=== PATIENT | male | born 1955 | race Two or more races ===

== ENCOUNTER 2017-01-03 11:51 | Inpatient (IN) | payer OTHER ==
--- NOTE | 2017-01-03 12:22 | PDOC ---
History of Present Illness - General Chief Complaint: Pain Stated Complaint: RT ARM NUMBNESS Time Seen by Provider: 01/03/17 12:04 History Source: Patient - History of Present Illness Timing/Duration: other Associated Symptoms: denies: chest pain, headaches, nausea/vomiting, shortness of breath, weakness Past History - Past Medical History Allergies/Adverse Reactions: Allergies Allergy/AdvReac Type Severity Reaction Status Date / Time No Known Allergies Allergy Verified 01/03/17 11:57 Diabetes: Yes - Psycho/Social/Smoking Cessation Hx Anxiety: No Suicidal Ideation: No Smoking History: Never smoked Hx Alcohol Use: Yes (SOCIAL) Drug/Substance Use Hx: No Substance Use Type: None Review of Systems - Review of Systems Constitutional: No: Chills, Fever HEENTM: No: Blurred Vision Respiratory: No: Shortness of Breath Cardiac (ROS): No: Chest Pain, Lightheadedness, Palpitations, Syncope ABD/GI: No: Nausea, Vomiting Musculoskeletal: Yes: Back Pain. No: Neck Pain Neurological: Yes: Numbness. No: Headache, Tingling, Dizziness *Physical Exam - Vital Signs Last Vital Signs Temp Pulse Resp BP Pulse Ox 97.6 F 67 20 138/63 99 01/03/17 11:52 01/03/17 11:52 01/03/17 11:52 01/03/17 11:52 01/03/17 11:52 - Physical Exam General Appearance: Yes: Appropriately Dressed. No: Apparent Distress HEENT: positive: Normal Voice Neck: positive: Supple Respiratory/Chest: positive: Lungs Clear, Normal Breath Sounds. negative: Respiratory Distress Cardiovascular: positive: Regular Rate, S1, S2 Gastrointestinal/Abdominal: positive: Soft. negative: Tender Extremity: positive: Normal Inspection Integumentary: positive: Dry, Warm Neurologic: positive: Fully Oriented, Alert, Normal Mood/Affect, Motor Strength 5/5, Sensory Deficit (to RUE compared to L), no nystagmus, nl finger to nose, Jania intact, no drift, no ataxia) ED Treatment Course - LABORATORY CBC & Chemistry Diagram: 01/03/17 12:30 01/03/17 12:30 - RADIOLOGY Radiology Studies Ordered: Category Date Time Status HEAD CT WITHOUT CONTRAST [CT] Stat CT Scan 01/03/17 12:16 Ordered Medical Decision Making - Medical Decision Making 01/03/17 12:17 61-year-old male history of hypertension, on baby aspirin, hyperlipidemia, insulin-dependent diabetic, here with right upper extremity numbness. Patient states his right upper extremity "feels " and has noticed that since symptoms started, he drops things easily from right hand. Denies headache, dizziness, visual changes, focal weakness, chest pain or shortness of breath. No history of known CAD and no history of stroke. Also c/o lower back pain x 1 week, worse w/ movement. No trauma. No LE weakness, saddle anesthesia or B/B incontinence. Denies neck pain See exam RUE numbness/weakness x 3 days R/o CVA vs radiculopathy vs neuropathy Decreased sensation to RUE compared to L, non-focal otherwise No neck pain -CT -labs -dispo pending 01/03/17 12:21 01/03/17 12:24 01/03/17 13:43 CT read as multiple acute/subacute L frontoparietal subcortical infarcts -serial neuro exams -neuro c/s -admit 01/03/17 13:58 01/03/17 14:[address] Le of neurology who recommends bilateral carotid dopplers and cardiac consult. Will continue to follow patient 01/03/17 14:42 *DC/Admit/Observation/Transfer Diagnosis at time of Disposition: CVA (cerebral vascular accident) Qualifiers: CVA mechanism: unspecified Qualified Code(s): I63.9 - Cerebral infarction, unspecified - Discharge Dispostion Condition at time of disposition: Fair Admit: Yes
[2017-01-03 12:36] LABS: BASOPHIL 0.6 % (0-2.0); EOSINOPHIL 1.3 % (0-4.5); MCH 31.7 pg (25.7-33.7); MCHC 33.7 g/dl (32.0-35.9); MEAN CELL VOLUME 94.2 fl (80-96); PLATELET COUNT 113 K/MM3 (134-434); RDW 13.8 % (11.9-15.9); WHITE BLOOD COUNT 7.3 K/mm3 (4.0-10.0)
[2017-01-03 13:00] LABS: ALBUMIN 3.7 g/dl (3.4-5.0); ALK PHOS 95 U/L (45-117); ANION GAP 4 (8-16); BILIRUBIN,TOTAL 0.5 mg/dL (0.2-1.0); CALCIUM 9.3 mg/dL (8.5-10.1); CO2 31 mmol/L (21-32); CREATININE 0.7 mg/dL (0.7-1.3); GLUCOSE,RANDOM 151 mg/dL (74-106); SGOT/AST 14 U/L (15-37); SGPT/ALT 23 U/L (12-78)
--- NOTE | 2017-01-03 15:31 | HP ---
CHIEF COMPLAINT: R upper extremity weakness x 3 days PCP: [facility] HISTORY OF PRESENT ILLNESS: 61 y/o M with PMH HTN, HLD, IDDM rut who presents to ED with R upper extremity weakness over the past 3 days. As per patient, one week ago, he had sudden sub-sternal chest pressure that was constant. Pt went to his PCP and had an EKG performed, which was normal. Four days later, pt suddenly experienced R lower extremity weakness, followed by R arm weakness and tingling, which is constant. This has been going on for the past 3 days, and it is not related to any injury or fall. During this time, pt has also had blurry vision which is more pronounced in his L eye. Over the past week, he has also had constant, 6/10 back pain that is relieved by leaning forward. He has also lost 25 pounds over the last 3 months and has decreased appetite. Denies fevers, night sweats, N/V/D, bladder or bowel incontinence, recent falls , injuries. ER course was notable for: (1) CT w/o contrast: acute/subacute L frontoparietal subcortical infarcts (2) CT cervical spine: C6-C7 central canal stenosis, R C6-C7 foraminal stenosis (3) Recent Travel: no PAST MEDICAL HISTORY: HTN, HLD, IDDM (glucose measurements at home range up to 220) PAST SURGICAL HISTORY: none Social History: Smokin pack per day for 50 years Alcohol: 6 beers/ week on the weekend Drugs: denies Family History: diabetes- sister Allergies No Known Allergies Allergy (Verified 01/03/17 11:57) HOME MEDICATIONS: -Lisinopril 2.5 mg PO daily -Simvastatin 5mg PO daily -Aspirin 81 mg PO daily -Novolog - takes 15 units in AM Pt pharmacy: [facility] on [address], [place] REVIEW OF SYSTEMS CONSTITUTIONAL: +loss of appetite, +weight loss 25 pounds 3 months Absent: fever, chills, diaphoresis, generalized weakness, malaise, loss of appetite, weight change HEENT: Absent: rhinorrhea, nasal congestion, throat pain, throat swelling, difficulty swallowing, mouth swelling, ear pain, eye pain, visual changes CARDIOVASCULAR: Absent: chest pain, syncope, palpitations, irregular heart rate, lightheadedness , peripheral edema RESPIRATORY: Absent: cough, shortness of breath, dyspnea with exertion, orthopnea, wheezing, stridor, hemoptysis GASTROINTESTINAL: Absent: abdominal pain, abdominal distension, nausea, vomiting, diarrhea, constipation, melena, hematochezia GENITOURINARY: Absent: dysuria, frequency, urgency, hesitancy, hematuria, flank pain, genital pain MUSCULOSKELETAL: +lower back pain Absent: myalgia, arthralgia, joint swelling, back pain, neck pain SKIN: Absent: rash, itching, pallor HEMATOLOGIC/IMMUNOLOGIC: Absent: easy bleeding, easy bruising, lymphadenopathy, frequent infections ENDOCRINE: +weight loss Absent: unexplained weight gain, unexplained weight loss, heat intolerance, cold intolerance NEUROLOGIC: +weakness RUE, RLE Absent: headache, focal weakness or paresthesias, dizziness, unsteady gait, seizure, mental status changes, bladder or bowel incontinence PSYCHIATRIC: Absent: anxiety, depression, suicidal or homicidal ideation, hallucinations. PHYSICAL EXAMINATION Vital Signs - 24 hr 01/03/17 11:52 Temperature 97.6 F Pulse Rate 67 Respiratory 20 Rate Blood Pressure 138/63 O2 Sat by Pulse 99 Oximetry (%) GENERAL: Awake, alert, and fully oriented, in no acute distress. HEAD: Normal with no signs of trauma. EYES: Pupils equal, round and reactive to light, extraocular movements intact, sclera anicteric, conjunctiva clear. EARS, NOSE, THROAT: Ears normal, nares patent, oropharynx clear without exudates. Moist mucous membranes. NECK: Normal range of motion, supple without lymphadenopathy, JVD, or masses. LUNGS: Breath sounds equal, clear to auscultation bilaterally. No wheezes, and no crackles. No accessory muscle use. HEART: Regular rate and rhythm, normal S1 and S2 without murmur, rub or gallop. ABDOMEN: Soft, nontender, not distended, normoactive bowel sounds, no guarding, no rebound, no masses. MUSCULOSKELETAL: Strength 2/5 in RLE, RUE, 5/5 in LLE, LUE UPPER EXTREMITIES: 2+ radial pulses, warm, well-perfused. No cyanosis. No peripheral edema. LOWER EXTREMITIES: 2+ posterior tibial pulses, warm, well-perfused. No calf tenderness. No peripheral edema. NEUROLOGICAL: Cranial nerves II-XII intact. Decreased sensation RUE, RLE, intact sensation LLE, LUE, dysmetria present (pt could not do finger to nose test ), heel to conde test- WNL PSYCHIATRIC: Cooperative. Emotional, worried about his condition Laboratory Results - last 24 hr 01/03/17 01/03/17 12:30 12:30 WBC 7.3 RBC 4.94 Hgb 15.7 Hct 46.5 MCV 94.2 MCH 31.7 MCHC 33.7 RDW 13.8 Plt Count 113 L MPV 9.0 Neutrophils % 55.0 Lymphocytes % 35.9 Monocytes % 7.2 Eosinophils % 1.3 Basophils % 0.6 Sodium 141 Potassium 4.4 Chloride 106 Carbon Dioxide 31 Anion Gap 4 L BUN 7 Creatinine 0.7 Creat Clearance w eGFR > 60 Random Glucose 151 H Calcium 9.3 Total Bilirubin 0.5 AST 14 L ALT 23 Alkaline Phosphatase 95 Total Protein 7.0 Albumin 3.7 ASSESSMENT/PLAN: 61 y/o M with PMH HTN, HLD, IDDM who presents to ED with R upper extremity weakness and tingling for 3 days. Patient admitted for CVA. # CVA -Sudden RUE, RLE weakness, constant, blurred vision -CT without contrast: acute/subacute L frontoparietal subcortical infarcts -R side Dysmetria on exam -Cardiac workup to see if any source embolus. EKG, Echo, Carotid doppler, speech and swallow, PT/INR, tele monitoring to check for any arrythmias, lipid panel -Continue aspirin 81mg PO, Plavix 75mg PO, Crestor 10 mg PO HS -Neuro consult- Dr. Le -Neuro checks #HTN-controlled -BP 138/63 -Continue Lisinopril 2.5mg PO daily, aspirin 81 mg PO daily -Monitor, if HTN becomes uncontrolled then can increase dose of Lisinopril if needed #HLD -F/u Lipid panel -Continue crestor 10 mg PO HS #DM- uncontrolled -Not well controlled, pt checks at home and glucose ranges up to 220 -Fingersticks -BGM ACHS -ISS -HbA1c # DVT prophylaxis -SCD's -Early ambulation F/E/N -IVF not needed at this time, pt can tolerate PO -monitor electrolytes -Regular diet Disposition Med-surg Visit type - Emergency Visit Emergency Visit: Yes ED Registration Date: 01/03/17 Care time: The patient presented to the Emergency Department on the above date and was hospitalized for further evaluation of their emergent condition. - New Patient This patient is new to me today: Yes Date on this admission: 01/03/17 - Critical Care Critical Care patient: No
--- NOTE | 2017-01-03 15:36 | HP ---
CHIEF COMPLAINT: right sided weakness PCP: Dr. Ana Laura Palomares, [facility] HISTORY OF PRESENT ILLNESS: 61 yr old man with HTN, DM presents with right sided weakness that started in his right leg and slowly progressed to his right arm. 4 days ago he had acute loss of vision in b/l eyes that lasted for 5 mins and he regained his full vision. He has been able to go to work but notes difficulty grasping with his right hand. He works as a [employer]. Last wednesday he had chest pain and was seen by his pcp, office ekg apparently had no acute changes. Pt denies difficulty eating, current vision changes, sob, chest pain, difficulty walking, trauma to his spine/head/chest/right arm. ER course was notable for: (1) head CT (2) Dr. Le consulted Recent Travel:none PAST MEDICAL HISTORY: HTN uncontrolled DM PHYSICAL EXAMINATION GENERAL: Awake, alert, and fully oriented, in no acute distress. HEAD: Normal with no signs of trauma. EYES: Pupils equal, round and reactive to light, extraocular movements intact, sclera anicteric, conjunctiva clear. EARS, NOSE, THROAT: oropharynx clear without exudates. Moist mucous membranes. NECK: Normal range of motion, supple without lymphadenopathy, JVD, or masses. LUNGS: Breath sounds equal, clear to auscultation bilaterally. No wheezes, and no crackles. No accessory muscle use. HEART: Regular rate and rhythm, normal S1 and S2 without murmur, rub or gallop. ABDOMEN: Soft, nontender, not distended, normoactive bowel sounds, no guarding, no rebound, no masses. MUSCULOSKELETAL: Normal range of motion at all joints. No bony deformities or tenderness. No CVA tenderness. UPPER EXTREMITIES: 2+ radial pulses, warm, well-perfused. No cyanosis. No clubbing. No peripheral edema. LOWER EXTREMITIES: 2+ DP pulses, warm, well-perfused. No calf tenderness. No peripheral edema. NEUROLOGICAL: Normal speech. facial symmetry. rapid tongue movements normal. no tremors. right motor strength: 3/5 on handgrip/biceps/triceps and 3/5 shoulder. 3/5 at hip/knee extension and flexion 3/5 in dorsi and plantar flexion. sensation diminished throughout arm compared to left arm. left motor strength: 5/5 on handgrip/biceps/triceps and shoulder. 5/5 at hip extension/flexion, knee extension and flexion, 5/5 dorsi and plantar flexion ASSESSMENT/PLAN: 61 yr old man with DM and HTN presents with right sided weakness found to have subacute infarcts and canal stenosis in c-spine on CT. - pt denies any pervious hx of colonoscopies. will try to contact his PCP to confirm cancer screenings as patient endorses a hx of unintentional weightloss, TSH in the am to r/o thyroid dysfunction #CVA - symptoms onset >3 days, no longer candidate for TPA - carotid dopplers, tele monitor, echo to r/o athrosclerosis/stenosis and arrhythmias - speech and swallow eval, bedside evaluation by me was normal swallowing without choking/difficulty/cough - PT evaluation - ASA 81mg + Plavix 75mg + crestor 10mg po daily - Neurology consult: Dr. Le - lipid panel, TSH, HBA1C - mario scale at discharge #DM NISS, BGM ACHS #HTN - continue home dose of 2.5mg lisinopril daily, but will likely need titration for target SBP <130 #smoking cessation - offer counseling on smoking cessation at discharge DVT SCD's Diet: npo until nursing performs bedside eval as per protocol Visit type - Emergency Visit Emergency Visit: Yes ED Registration Date: 01/03/17 Care time: The patient presented to the Emergency Department on the above date and was hospitalized for further evaluation of their emergent condition. - New Patient This patient is new to me today: Yes Date on this admission: 01/03/17 - Critical Care Critical Care patient: No
[2017-01-03] MEDS ORDERED: PNEUMOC 13-VAL CONJ-DIP CRM/PF 0.5 ML DISP.SYRIN IM ONE (16:52)
[2017-01-03] MEDS ORDERED: CLOPIDOGREL BISULFATE 75 MG TABLET (FP) ONE (16:57)
[2017-01-03] MEDS: CLOPIDOGREL BISULFATE 75 MG TABLET (FP) PO SCH (17:00)
[2017-01-03] MEDS: INSULIN SLIDING SCALE (NOVOLOG) 1 VIAL SQ SCH ×2 (17:20→21:52)
--- NOTE | 2017-01-03 17:37 | PN ---
Teaching Attending Note Name of Resident: Corry Hicks ATTENDING PHYSICIAN STATEMENT I saw and evaluated the patient. I reviewed the resident's note and discussed the case with the resident. I agree with the resident's findings and plan as documented. SUBJECTIVE:61yo M c/o RUE/RLE weakness x4 days. states he had CP a week ago and saw his PMD in the office. an ekg was done and negative. he then developed RLE weakness 4 days ago and the following day with RUE weakness. assoc with blurred vision. no similar symptoms/episodes in the past. 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 (25lbs in 3 months) OBJECTIVE: Last Vital Signs Temp Pulse Resp BP Pulse Ox 97.6 F 62 18 130/71 99 01/03/17 11:52 01/03/17 15:00 01/03/17 15:00 01/03/17 15:00 01/03/17 15:00 General NAD CV S1 S2 RRR no murmur/rub/gallop Lungs CTA B/L no wheezing/rales/rhonchi Extremities no pedal edema Neuro CN II- XII grossly intact. RUE decreased sensation. no pronator drift but pt struggles to keep hands raised. 3/5 strength RUE/RLE 5/5 LUE/LLE gait testing deferred ASSESSMENT AND PLAN: 61yo M with PMH HTN, dyslipidemia and DM presented to the ER with RUE/RLE weakness and found to have subacute CVA 1. L subacute CVA- NIHSS 4. not a TPA candidate because outside the time frame. will place on cardiac monitoring to watch for arrythmia, carotid doppler, echo. check lipid panel. Neuro, speech and swallow pathologist, PT eval. will switch low intensity statin to crestor. start plavix. 2. C6-C7 canal stenosis- this can be related to decreased sensation and weakness of RUE. however would not explain RLE weakness. PT assessment 3. Significant weight loss- should have a malignancy workup done as outpatient. smoking history 4. HTN- controlled. hold oral agents. will re-start medications tomorrow to optimize BP <140/90 5. DM- uncontrolled. check a1c. iss, bgm, 6. DVT ppx- EAM
[2017-01-03 21:06] VITALS: BMI 21.3
[2017-01-03] MEDS: ROSUVASTATIN CA 10 MG TABLET (FP) PO SCH (21:53)
[2017-01-03 22:22] LABS: URINE APPEARANCE CLEAR; URINE BILIRUBIN NEGATIVE (NEGATIVE); URINE BLOOD NEGATIVE (NEGATIVE); URINE COLOR LTYELLOW; URINE GLUCOSE (UA) 1+ (NEGATIVE); URINE KETONE NEGATIVE (NEGATIVE); URINE LEUK ESTERASE NEGATIVE (NEGATIVE); URINE NITRITE NEGATIVE (NEGATIVE); URINE PROTEIN NEGATIVE (NEGATIVE); URINE UROBILINOGEN NEGATIVE mg/dL (0.2-1.0)
[2017-01-04] MEDS: INSULIN SLIDING SCALE (NOVOLOG) 1 VIAL SQ SCH ×4 (06:35→22:09)
[2017-01-04 07:32] LABS: BASOPHIL 0.4 % (0-2.0); EOSINOPHIL 1.3 % (0-4.5); MCH 31.7 pg (25.7-33.7); MCHC 33.5 g/dl (32.0-35.9); MEAN CELL VOLUME 94.5 fl (80-96); MEAN PLT VOLUME 10.3 fl (7.5-11.1); NEUTROPHILS 62.8 % (42.8-82.8); PLATELET COUNT 126 K/MM3 (134-434); RDW 13.8 % (11.9-15.9); WHITE BLOOD COUNT 11.4 K/mm3 (4.0-10.0)
[2017-01-04 07:45] LABS: INR 1.1 (0.82-1.09); PROTHROMBIN TIME (PATIENT) 12.1 SEC (9.98-11.88)
[2017-01-04 08:19] LABS: ANION GAP 7 (8-16); CALCIUM 8.4 mg/dL (8.5-10.1); CHOLESTEROL 176 mg/dL (50-200); CO2 25 mmol/L (21-32); CREATININE 0.6 mg/dL (0.7-1.3); GLUCOSE,RANDOM 166 mg/dL (74-106); LDL CHOLESTEROL (ONLY SJRH) 102 mg/dL (5-100); THYROID STIMULATING HORMONE 3.31 uIU/ml (0.358-3.74)
--- NOTE | 2017-01-04 08:40 | CON.CARD ---
Consult Consult Specialty:: cardio Referred by:: hospitalist Reason for Consultation:: cva, atyp cp - History of Present Illness Chief Complaint: blurred vision, arm pain History of Present Illness: 61 y/o M presented to ED with R upper and lower extremity weakness over the past 3 days. he also reported L > R eye vision changes for past few days. also reported episode of sudden sub-sternal chest pressure 1 week [employer]--this was constant, resolved on its own. saw his PCP at that time and reportedly EKG performed, which was normal. Over the past week, he has also had constant, 6/10 back pain that is relieved by leaning forward. He has also lost 25 pounds over the last 3 months and has decreased appetite. describes the cp as lasting for approx 30min, no radiation including to back ( and no assctd back pain) and no "tearing" sensation. +assctd sob then, no presyncope/diaph. took ASA and it eventually resolved. never happened before, no more episodes of the pain. denies acid/burning sensation with it PMH: HTN HPL DM ex cigs no FH of CAD/CT - Alcohol/Substance Use Hx Alcohol Use: Yes (SOCIAL) - Smoking History Smoking history: Never smoked Home Medications - Allergies Allergies/Adverse Reactions: Allergies Allergy/AdvReac Type Severity Reaction Status Date / Time No Known Allergies Allergy Verified 01/03/17 11:57 - Home Medications Home Medications: Ambulatory Orders Aspirin [ASA -] 81 mg PO DAILY 01/03/17 Insulin (Novolog 70/30) [Novolog Mix 70/30 Flexpen -] 15 units SQ DAILY Lisinopril [Zestril] 2.5 mg PO DAILY 01/03/17 Simvastatin 5 mg PO 1900 01/03/17 Review of Systems - Review of Systems Constitutional: denies: Chills, Fever Eyes: denies: Eye Pain HENT: denies: Nasal Congestion Neck: denies: Stiffness Cardiovascular: denies: Palpitations Respiratory: denies: Orthopnea, PND Gastrointestinal: denies: Diarrhea, Rectal Bleeding Genitourinary: denies: Burning, Hematuria Musculoskeletal: denies: Muscle Pain Integumentary: denies: Rash Neurological: denies: Numbness, Seizure, Syncope Endocrine: denies: Excessive Sweating Hematology/Lymphatic: denies: Excessive Bleeding Vital Signs: Vital Signs Temperature 98 F 01/04/17 05:36 Pulse Rate 63 01/04/17 05:36 Respiratory Rate 18 01/04/17 05:36 Blood Pressure 121/64 01/04/17 05:36 O2 Sat by Pulse Oximetry (%) 98 01/03/17 21:00 Constitutional: Yes: Well Nourished, No Distress Eyes: No: Sclera Icterus HENT: No: Nasal Congestion Neck: No: Decreased ROM Respiratory: Yes: CTA Bilaterally. No: Accessory Muscle Use, Rales, Wheezes Gastrointestinal: Yes: Normal Bowel Sounds (no bruits). No: Distention, Hepatomegaly, Palpable Mass, Tenderness Cardiovascular: Yes: Regular Rate and Rhythm JVD: No Carotid Bruit: No PMI: Non-Displaced Heart Sounds: Yes: S1, S2. No: Gallop Murmur: No: Systolic Murmur, Diastolic Murmur Musculoskeletal: Yes: Other (No kyphosis) Extremities: No: Cold Edema: No Peripheral Pulses: 2+ Left Carotid, 2+ Right Carotid, 2+ Left Doralis Pedis, 2+ Right Dorsalis Pedis Integumentary: No: Jaundice Neurological: Yes: Alert. No: Seizure Psychiatric: No: Agitated - Other Data Labs, Other Data: CBC, BMP 01/04/17 06:00 INR, PTT INR 1.10 (0.82-1.09) 01/04/17 06:00 Laboratory Tests 01/03/17 01/04/17 12:30 06:00 WBC 11.4 H D Hgb 15.3 Plt Count 126 L Sodium 141 Potassium 4.4 Carbon Dioxide 31 BUN 7 Creatinine 0.7 AST 14 L ALT 23 tele: NSR Assessment/Plan CT head w/o contrast: acute/subacute L frontoparietal subcortical infarcts CT cervical spine: C6-C7 central canal stenosis, R C6-C7 foraminal stenosis Carotid dopplers: no plaque, no stenosis ECG: NSR, normal axis/intervals; no path q's (v1-/v2 only); early repol normal variant pattern (no old) acute/subacute L frontoparietal infarcts: -tele to monitor for afib -carotids normal -check echo -was on ASA at home and had CVA despite this--cont same for now, defer anti-PLT choice to neuro -f/u neuro eval and recs atypical CP: -self-limited episode approx 1 week prior to admit, apparently normal ecg at PMD -ecg non-ischemic -troponin negative -f/u echo -sx's not suspicious for aortic dissection (i.e. with carotids involvement...and no suggestion of carotid dissection on dopplers). would not w/ u dissection further -rec he eventually have stress test to r/o atypical angina as etiology of his sx 's 1 week ago--will wait until he is further out from his acute CVA and demonstrates neurologic stability HTN: -well controlled -cont home lisinopril HPL: -TGs 400s, HDL 20s, LDL 100s -cont home simvastatin -would add TG lowering med to hopefully improve HDL and decr risk, in setting of CVA sec prevention--rec fenofibrate as more potent than omega 3 FAs. however prior h/o intolerances to this med is unknown, and not on it (suspect pmd would have tried fibrate in past)--defer to outpt f/u (will have him f/u with us as well as pmd) DM: -per hospitalist
--- NOTE | 2017-01-04 09:35 | CONSULT ---
Admitting History and Physical - Primary Care Physician PCP: Trini Owusu - Admission History of Present Illness: Per EMR: "61yo M c/o RUE/RLE weakness x4 days. states he had CP a week ago and saw his PMD in the office. an ekg was done and negative. he then developed RLE weakness 4 days ago and the following day with RUE weakness. assoc with blurred vision. no similar symptoms/episodes in the past. 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 (25lbs in 3 months)" History Source: Patient, Family Member, Medical Record Limitations to Obtaining History: No Limitations, Language Barrier - Smoking History Smoking history: Never smoked - Alcohol/Substance Use Hx Alcohol Use: Yes (SOCIAL) History - Admission Reason For Visit: CVA - Diagnostics X-ray: Report Reviewed CT Scan: Report Reviewed (CT head w/o contrast: acute/subacute L frontoparietal subcortical infarcts CT cervical spine: C6-C7 central canal stenosis, R C6-C7 foraminal stenosis) - General Mental Status: Alert and Oriented, Awake and Alert, Able to Follow Commands Attention: Intact Ability to Follow Directions: Excellent Head/Neck Control: WFL - Hearing Hearing: Normal Speech Evaluation - Communication Primary Language: YAKUT Communication: Yes: Within Normal Limits, Language Barrier (police matron used) Oral Expression Ability: Yes: No Impairment - Speech Production Apraxia: No Able to Make Needs Known: Yes: WNL Intelligibility: Yes: WNL - Speech Characteristics Voice Loudness: Normal Voice Pitch: Yes: Normal Voice Phonatory-based Quality: Yes: Normal Speech Pattern: Normal Speech Clarity: < 100% Nasal Resonance: Normal Articulation: Yes: Precise - Language/Auditory Comprehension Follows: Yes: Complex Commands Observation: Able to respond to yes/no queries: Yes, Yes/No Confusion: No, Comprehends Conversational Speech: Yes - Language/Verbal Expression Able to Respond to Simple Queries: Yes: WNL Able to Communicate Wants and Needs: Yes: WNL Functional Communication Status: Yes: WNL - Memory/Perception rodent exterminator Memory: Yes: WNL Short Term Memory: Yes: WNL - Swallow Evaluation/Bedside Assessment Current Nutritional Intake: Regular, Thin Liquids Oral Secretions: Yes: WFL Dentition: Yes: Adequate Facial Symmetry at Rest: Symmetrical Facial Symmetry on Retraction: Symmetrical Facial Movement: Controlled Sensation: Normal Against Resistance Opening: Normal Against Resistance Closing: Normal Pucker Lips: Normal Smile: Normal Lingual Movement: Normal, Symmetric Lingual Speed of Movement: Normal Lingual Movement Strgth Against Opposition: Normal Lingual Movement Characteristics: Normal Velopharyngeal Movement: Normal Laryngeal Elevation: WFL Laryngeal Movement: Able to Palpate Rate of Intake: WFL Bolus Size: WFL Labial Seal: WFL Chewing: WFL Oral Prep Time: WFL A-P Transit: WFL Pocketing: None Timing of Swallow: WFL Coughing/Throat Clear: No Change in Voice: No Recommendations - Speech Evaluation, Impression/Plan Impression: Speech production, Language, cognition, swallowing intact. - Dysphagia Impressions/Plan Swallowing Skills: [facility] Dysphagia Impressions: No Impairment *Silent aspiration: cannot be R/O at bedside - Recommendations Diet Consistency: Regular Medication Administration: Whole with water Liquids: Thin Liquids
--- NOTE | 2017-01-04 09:48 | EKG ---
Test Reason : Blood Pressure : / mmHG Vent. Rate : 064 BPM Atrial Rate : 064 BPM P-R Int : 150 ms QRS Dur : 072 ms QT Int : 366 ms P-R-T Axes : 047 014 032 degrees QTc Int : 377 ms NORMAL SINUS RHYTHM SEPTAL INFARCT (CITED ON OR BEFORE 03-JAN-2017) ABNORMAL ECG WHEN COMPARED WITH ECG OF 03-JAN-2017 12:25, NO SIGNIFICANT CHANGE WAS FOUND Confirmed by KAYLEIGH LOTT MD ([id number]) on 01/04/2017 9:48:23 AM Referred By: BRENDAN GREEN DR Confirmed By:KAYLEIGH LOTT MD
[2017-01-04] MEDS: LISINOPRIL 5 MG TABLET (FP) PO SCH (10:04)
[2017-01-04] MEDS: CLOPIDOGREL BISULFATE 75 MG TABLET (FP) PO SCH (10:05)
[2017-01-04] MEDS: ASPIRIN 81 MG CHEWABLE TABLETS PO SCH (10:05)
[2017-01-04 10:14] LABS: CPK 66 IU/L (39-308)
[2017-01-04 10:15] LABS: TROPONIN I < 0.02 ng/ml (0.00-0.05)
[2017-01-04 11:21] LABS: C-REACTIVE PROTEIN < 0.3 MG/DL (0.00-0.3)
--- NOTE | 2017-01-04 12:18 | CONSULT ---
Consult - text type - Consultation Consultation Note: NEUROLOGY CONSULTATION is greatly appreciated: Events and CT reviewed. Pt examined in the presence of his . 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 This 61 yo RH, man is a bettencourt with h/o HTN, DM, Chol and TG on lisinopril, crestor and insulin. Had w/u of chest pain in the last few weeks. Admitted yesterday after 3 days of numbness, tingling and weakness in the right arm with difficulty holding objects and difficulty walking. CT of Head (reviewed) shows scattered subcortical microvascular changes, more on the ledft side. Carotid duplex dopplers unremarkable for carotid stenosis. Glycosylated Hemoglobin A1-C=8.8 %. TG's > 400 mg% Dr. Tamayo's cardiology consultation read and appreciated. WINSOME: Well-built and nourished. No bruits., Cor reg. On Telemetry. NEURO: MS/speech: Normal CN's II-XII: normal. Full fioelds. No facial. Gag fine Motor: Mild upward drift on the Right. Slightly reduced LORETTA's R hand. Normal strength and reflexes. Toes downgoing Coord: No FTN dystaxia Sensory: Normal. Romberg Neg Gait: Mild R circumduction. IMP: Mild residual left cerebral dysfunction. Most suggestive off a microvascular event (suspect a lacunar infarct in the posterior limb of the left internal capsule. SUGGEST: Await MRI (C-) MR Angio of intracranial circulation (R/O right MCA trifurcation stenosis). Agree with Plavix (75 mg qd). Agree with addition of fenofibrate to crestor. Agree with Telemetry, stress test. Consider Echocardeiogram as well if Dr. Tamayo agrees. Thank you very much, Ramone Le MD
--- NOTE | 2017-01-04 12:34 | PN ---
Teaching Attending Note Name of Resident: Corry Hicks ATTENDING PHYSICIAN STATEMENT I saw and evaluated the patient. I reviewed the resident's note and discussed the case with the resident. I agree with the resident's findings and plan as documented. SUBJECTIVE:continues to have blurred vision. his strength in RUE/RLE improved. denies CP, SOB, fever, chills, N/V/C/D OBJECTIVE: Last Vital Signs Temp Pulse Resp BP Pulse Ox 98 F 64 14 112/64 96 01/04/17 08:10 01/04/17 08:10 01/04/17 08:10 01/04/17 08:10 01/04/17 09:00 General NAD CV S1 S2 RRR no murmur/rub/gallop Lungs CTA B/L no wheezing/rales/rhonchi Extremities no pedal edema Neuro CN II- XII grossly intact. RUE decreased sensation. no pronator drift but pt struggles to keep hands raised. strength equal in all extremities. negative Rhomberg sign. normal gait ASSESSMENT AND PLAN: 61yo M with PMH HTN, dyslipidemia and DM presented to the ER with RUE/RLE weakness and found to have subacute CVA 1. L subacute CVA- NIHSS 4. clinically improved. strength is now improved. carotid doppler negative for significant disease. cont further CVA workup. MRI/ MRI, echo. Neuro, speech and swallow pathologist, PT eval. on statin/plavix. 2. C6-C7 canal stenosis- strength now equal in all 4 extremities but continues to have numbness limited to entire RUE. concern may be related to this over CVA. would likely benefit from EMG to further evaluate. PT assessment 3. Significant weight loss- should have a malignancy workup done as outpatient. pt agreeable to workup as outpatient. expressed concerning for malignancy. pt is anxious to go home and does not want to delay discharge. + smoking history 4. hypertriglyceridemia- start fibrate 5. HTN- controlled. cont home medications. 6. DM- A1c 8.8. titrate to optimize control. on novolog 70/30 7. DVT ppx- EAM
[2017-01-04] MEDS: FENOFIBRIC ACID 45 MG CAP PO SCH (15:26)
--- NOTE | 2017-01-04 16:26 | PN ---
Physical Exam: SUBJECTIVE: Patient seen and examined in room. Pt's gait is improved, no dysarthria. R pronator drift present. Denies SOB, chest pain, or lower extremity pain. OBJECTIVE: Vital Signs Period Temp Pulse Resp BP Sys/Sanchez Pulse Ox Last 24 Hr 98 F-98.8 F 63-67 14-20 107-124/62-71 96-98 GENERAL: The patient is awake, alert, and fully oriented, in no acute distress. HEAD: Normal with no signs of trauma. EYES: PERRL, extraocular movements intact, sclera anicteric, conjunctiva clear. NECK: Trachea midline, supple. LUNGS: Breath sounds equal, clear to auscultation bilaterally, no wheezes, no crackles, no accessory muscle use. HEART: Regular rate and rhythm, S1, S2 without murmur, rub or gallop. ABDOMEN: Soft, nontender, nondistended, normoactive bowel sounds, no guarding, no rebound EXTREMITIES: motor strength 3/5 in RUE and RLE. 2+ posterior tibial pulses, warm , well-perfused, no edema. NEUROLOGICAL: Cranial nerves II through XII grossly intact. No dysarthria. R pronator drift present. Gait improved compared to yesterday. Laboratory Results - last 24 hr 01/03/17 01/03/17 01/03/17 17:25 21:50 22:04 WBC RBC Hgb Hct MCV MCH MCHC RDW Plt Count MPV Neutrophils % Lymphocytes % Monocytes % Eosinophils % Basophils % ESR INR PTT (Actin FS) Sodium Potassium Chloride Carbon Dioxide Anion Gap BUN Creatinine POC Glucometer [phone] Random Glucose Hemoglobin A1c % Calcium Creatine Kinase Troponin I C-Reactive Protein Triglycerides Cholesterol Total LDL Cholesterol HDL Cholesterol TSH Urine Color Ltyellow Urine Appearance Clear Urine pH 7.0 Ur Specific [place] 1.020 Urine Protein Negative Urine Glucose (UA) 1+ H Urine Ketones Negative Urine Blood Negative Urine Nitrite Negative Urine Bilirubin Negative Urine Urobilinogen Negative Ur Leukocyte Esterase Negative 01/04/17 01/04/17 01/04/17 05:33 05:35 06:00 WBC 11.4 H D RBC 4.82 Hgb 15.3 Hct 45.5 MCV 94.5 MCH 31.7 MCHC 33.5 RDW 13.8 Plt Count 126 L MPV 10.3 D Neutrophils % 62.8 Lymphocytes % 28.5 D Monocytes % 7.0 Eosinophils % 1.3 Basophils % 0.4 ESR INR PTT (Actin FS) Sodium Potassium Chloride Carbon Dioxide Anion Gap BUN Creatinine POC Glucometer 169 Random Glucose Hemoglobin A1c % Calcium Creatine Kinase Cancelled Troponin I Cancelled C-Reactive Protein Triglycerides Cholesterol Total LDL Cholesterol HDL Cholesterol TSH Urine Color Urine Appearance Urine pH Ur Specific [place] Urine Protein Urine Glucose (UA) Urine Ketones Urine Blood Urine Nitrite Urine Bilirubin Urine Urobilinogen Ur Leukocyte Esterase 01/04/17 01/04/17 01/04/17 06:00 06:00 06:00 WBC RBC Hgb Hct MCV MCH MCHC RDW Plt Count MPV Neutrophils % Lymphocytes % Monocytes % Eosinophils % Basophils % ESR INR 1.10 PTT (Actin FS) 32.0 Sodium 139 Potassium 4.1 Chloride 107 Carbon Dioxide 25 Anion Gap 7 L BUN 14 D Creatinine 0.6 L POC Glucometer Random Glucose 166 H Hemoglobin A1c % 8.8 H Calcium 8.4 L Creatine Kinase 66 Troponin I < 0.02 C-Reactive Protein < 0.3 Triglycerides 486 H Cholesterol 176 Total LDL Cholesterol 102 H HDL Cholesterol 23 L TSH 3.31 Urine Color Urine Appearance Urine pH Ur Specific [place] Urine Protein Urine Glucose (UA) Urine Ketones Urine Blood Urine Nitrite Urine Bilirubin Urine Urobilinogen Ur Leukocyte Esterase 01/04/17 01/04/17 01/04/17 10:45 10:45 12:32 WBC RBC Hgb Hct MCV MCH MCHC RDW Plt Count MPV Neutrophils % Lymphocytes % Monocytes % Eosinophils % Basophils % ESR 2 INR PTT (Actin FS) Sodium Potassium Chloride Carbon Dioxide Anion Gap BUN Creatinine POC Glucometer 207 Random Glucose Hemoglobin A1c % Calcium Creatine Kinase Troponin I C-Reactive Protein Cancelled Triglycerides Cholesterol Total LDL Cholesterol HDL Cholesterol TSH Urine Color Urine Appearance Urine pH Ur Specific [place] Urine Protein Urine Glucose (UA) Urine Ketones Urine Blood Urine Nitrite Urine Bilirubin Urine Urobilinogen Ur Leukocyte Esterase Active Medications Generic Name Dose Route Start Last Admin Trade Name Freq PRN Reason Stop Dose Admin Aspirin 81 mg 01/04/17 10:00 01/04/17 10:05 Asa - PO 81 mg DAILY JAMES Administration Clopidogrel Bisulfate 75 mg 01/03/17 16:15 01/04/17 10:05 Plavix - PO 75 mg DAILY JAMES Administration Fenofibric Acid 45 mg 01/04/17 13:00 01/04/17 15:26 Trilipix - PO 45 mg DAILY JAEMS Administration Insulin Aspart 1 vial 01/03/17 16:30 01/04/17 12:33 Novolog Vial Sliding Scale - SQ 4 units ACHS JAMES Administration Protocol Lisinopril 2.5 mg 01/04/17 10:00 01/04/17 10:04 Prinivil PO 2.5 mg DAILY JAMES Administration Rosuvastatin Calcium 10 mg 01/03/17 22:00 01/03/17 21:53 Crestor - PO 10 mg HS JAMES Administration ASSESSMENT/PLAN: 61 y/o M with PMH HTN, HLD, IDDM who presents to ED with R upper extremity weakness and tingling for 3 days. Patient admitted for CVA. # CVA -Carotid doppler- no stenosis -Lipid panel: 486 triglycerides -Speech and swallow: no deficits noted -F/u MRI without contrast/ MRA without contrast -F/u EKG, Echo, tele monitoring to check for any arrythmias -Continue aspirin 81mg PO, Plavix 75mg PO, Crestor 10 mg PO HS, Fenofibrate 45mg PO -Follow Neuro consult- Dr. Le -Neuro checks #HTN-controlled -BP 121/64 -Continue Lisinopril 2.5mg PO daily, aspirin 81 mg PO daily #HLD -Triglycerides 486 -Continue crestor 10 mg PO HS, Fenofibrate 45mg PO #DM- uncontrolled -Fingersticks -BGM ACHS -ISS -HbA1c # DVT prophylaxis -SCD's -Early ambulation F/E/N -IVF not needed at this time, pt can tolerate PO -monitor electrolytes -Regular diet Disposition -Will wait for PT disposition, as per case management he can go home and may qualify for visiting nurse service (if needed) Visit type - Emergency Visit Emergency Visit: No - New Patient This patient is new to me today: No - Critical Care Critical Care patient: No
[2017-01-04] MEDS: ROSUVASTATIN CA 10 MG TABLET (FP) PO SCH (21:34)
[2017-01-05 05:40] VITALS: TEMP 97
[2017-01-05] MEDS: INSULIN SLIDING SCALE (NOVOLOG) 1 VIAL SQ SCH ×2 (06:46→12:15)
[2017-01-05 07:48] VITALS: BP 102/60; PULSE 61
[2017-01-05 08:02] LABS: BASOPHIL 0.4 % (0-2.0); EOSINOPHIL 1.4 % (0-4.5); MCH 31.8 pg (25.7-33.7); MEAN CELL VOLUME 93.4 fl (80-96); MEAN PLT VOLUME 10.5 fl (7.5-11.1); NEUTROPHILS 54.3 % (42.8-82.8); PLATELET COUNT 117 K/MM3 (134-434); RDW 13.6 % (11.9-15.9); WHITE BLOOD COUNT 8.3 K/mm3 (4.0-10.0)
[2017-01-05] MEDS ORDERED: PT OWN MED DRAWER 7, Y5N ONE ×2 (08:34→09:39)
[2017-01-05 09:06] LABS: ANION GAP 8 (8-16); CALCIUM 8.6 mg/dL (8.5-10.1); CO2 27 mmol/L (21-32); CREATININE 0.6 mg/dL (0.7-1.3); GLUCOSE,RANDOM 181 mg/dL (74-106)
[2017-01-05] MEDS: ASPIRIN 81 MG CHEWABLE TABLETS PO SCH (09:40)
[2017-01-05] MEDS: CLOPIDOGREL BISULFATE 75 MG TABLET (FP) PO SCH (09:40)
[2017-01-05] MEDS: FENOFIBRIC ACID 45 MG CAP PO SCH (09:40)
[2017-01-05] MEDS: LISINOPRIL 5 MG TABLET (FP) PO SCH (09:40)
--- NOTE | 2017-01-05 11:56 | PN ---
Progress Note (short form) - Note Progress Note: Chief Complaint: blurred vision, arm pain History of Present Illness: he also reported L > R eye vision changes for past few days. also reported episode of sudden sub-sternal chest pressure 1 week [employer]--this was constant, resolved on its own. saw his PCP at that time and reportedly EKG performed, which was normal. Over the past week, he has also had constant, 6/10 back pain that is relieved by leaning forward. He has also lost 25 pounds over the last 3 months and has decreased appetite. describes the cp as lasting for approx 30min, no radiation including to back ( and no assctd back pain) and no "tearing" sensation. +assctd sob then, no presyncope/diaph. took ASA and it eventually resolved. never happened before, no more episodes of the pain. denies acid/burning sensation with it Current Medications Aspirin (Asa -) 81 mg PO DAILY [facility] Last Admin: 01/05/17 09:40 Dose: 81 mg Clopidogrel Bisulfate (Plavix -) 75 mg PO DAILY [facility] Last Admin: 01/05/17 09:40 Dose: 75 mg Fenofibric Acid (Trilipix -) 45 mg PO DAILY [facility] Last Admin: 01/05/17 09:40 Dose: 45 mg Insulin Aspart (Novolog Vial Sliding Scale -) 1 vial SQ ACHS [facility] PRN Reason: Protocol Last Admin: 01/05/17 06:46 Dose: 2 units Lisinopril (Prinivil) 2.5 mg PO DAILY [facility] Last Admin: 01/05/17 09:40 Dose: 2.5 mg Rosuvastatin Calcium (Crestor -) 10 mg PO HS [facility] Last Admin: 01/04/17 21:34 Dose: 10 mg Vital Signs - 24 hr 01/04/17 01/04/17 01/04/17 14:20 17:00 21:00 Temperature 98.8 F 98.0 F 98.2 F Pulse Rate 67 71 68 Respiratory 16 18 20 Rate Blood Pressure 114/62 100/64 122/69 O2 Sat by Pulse 96 Oximetry (%) 01/05/17 01/05/17 01/05/17 01:00 05:39 07:41 Temperature 98.1 F 97 F L 97 F L Pulse Rate 65 59 L 61 Respiratory 18 18 18 Rate Blood Pressure 104/62 102/64 102/60 O2 Sat by Pulse Oximetry (%) 01/05/17 07:49 Temperature Pulse Rate Respiratory 18 Rate Blood Pressure O2 Sat by Pulse 96 Oximetry (%) Intake & Output 01/03/17 01/04/17 01/05/17 01/06/17 07:59 07:59 07:59 07:59 Intake Total 560 Output Total 280 Balance -280 560 Weight 128 lb 0.7 oz Constitutional: Yes: Well Nourished, No Distress Eyes: No: Sclera Icterus HENT: No: Nasal Congestion Neck: No: Decreased ROM Respiratory: Yes: CTA Bilaterally. No: Accessory Muscle Use, Rales, Wheezes Gastrointestinal: Yes: Normal Bowel Sounds (no bruits). No: Distention, Hepatomegaly, Palpable Mass, Tenderness Cardiovascular: Yes: Regular Rate and Rhythm JVD: No Carotid Bruit: No PMI: Non-Displaced Heart Sounds: Yes: S1, S2. No: Gallop Murmur: No: Systolic Murmur, Diastolic Murmur Musculoskeletal: Yes: Other (No kyphosis) Extremities: No: Cold Edema: No Peripheral Pulses: 2+ Left Carotid, 2+ Right Carotid, 2+ Left Doralis Pedis, 2+ Right Dorsalis Pedis Integumentary: No: Jaundice Neurological: Yes: Alert. No: Seizure Psychiatric: No: Agitated - Other Data Labs, Other Data: CBC, BMP 01/05/17 05:43 01/05/17 05:43 tele: NSR Assessment/Plan CT head w/o contrast: acute/subacute L frontoparietal subcortical infarcts CT cervical spine: C6-C7 central canal stenosis, R C6-C7 foraminal stenosis Carotid dopplers: no plaque, no stenosis ECG: NSR, normal axis/intervals; no path q's (v1-/v2 only); early repol normal variant pattern (no old) 61 y/o with h/o HTN, HL/hypertriglyceridemia, DM who p/w stroke syndrome(R upper and lower extremity weakness and vision changes). acute/subacute L frontoparietal infarcts: -tele to monitor for afib -carotids normal -check echo -was on ASA at home and had CVA despite this--cont same for now, defer anti-PLT choice to neuro -f/u neuro eval and recs atypical CP: -self-limited episode approx 1 week prior to admit, apparently normal ecg at PMD -ecg non-ischemic -troponin negative -f/u echo -sx's not suspicious for aortic dissection (i.e. with carotids involvement...and no suggestion of carotid dissection on dopplers). would not w/ u dissection further -rec he eventually have stress test to r/o atypical angina as etiology of his sx 's 1 week ago--will wait until he is further out from his acute CVA and demonstrates neurologic stability HTN: -well controlled -cont home lisinopril HPL: -TGs 400s, HDL 20s, LDL 100s -cont home simvastatin -would add TG lowering med to hopefully improve HDL and decr risk, in setting of CVA sec prevention--rec fenofibrate as more potent than omega 3 FAs. however prior h/o intolerances to this med is unknown, and not on it (suspect pmd would have tried fibrate in past)--defer to outpt f/u (will have him f/u with us as well as pmd) DM: -per hospitalist
--- NOTE | 2017-01-05 14:41 | DS ---
Physical Exam: SUBJECTIVE: Patient seen and examined at bedside today. Pt's strength in RUE and RLE has greatly improved; his strength is now 3/5-4/5. Pt denies chest pain , SOB. OBJECTIVE: Vital Signs Period Temp Pulse Resp BP Sys/Sanchez Pulse Ox Last 24 Hr 97 F-98.2 F 59-71 18-20 100-122/60-69 96-96 PHYSICAL EXAM GENERAL: The patient is awake, alert, and fully oriented, in no acute distress. HEAD: Normal with no signs of trauma. EYES: PERRL, extraocular movements intact, sclera anicteric, conjunctiva clear. NECK: Trachea midline, supple. LUNGS: Breath sounds equal, clear to auscultation bilaterally, no wheezes, no crackles, no accessory muscle use. HEART: Regular rate and rhythm, S1, S2 without murmur, rub or gallop. ABDOMEN: Soft, nontender, nondistended, normoactive bowel sounds, no guarding, no rebound, no hepatosplenomegaly, no masses. EXTREMITIES: 2+ posterior tibial pulses, warm, well-perfused, no edema. NEUROLOGICAL: Cranial nerves II through XII grossly intact. Motor strength 3/5-4 /5 in RUE and RLE, 5/5 in LLE and LUE. Sensation intact in both lower extremities, no dysarthria, mild R pronator drift LABS Laboratory Results - last 24 hr 01/04/17 01/04/17 01/05/17 17:07 21:32 05:36 WBC RBC Hgb Hct MCV MCH MCHC RDW Plt Count MPV Neutrophils % Lymphocytes % Monocytes % Eosinophils % Basophils % Sodium Potassium Chloride Carbon Dioxide Anion Gap BUN Creatinine POC Glucometer 203 187 176 Random Glucose Calcium 01/05/17 01/05/17 01/05/17 05:43 05:43 12:06 WBC 8.3 RBC 4.76 Hgb 15.1 Hct 44.5 MCV 93.4 MCH 31.8 MCHC 34.0 RDW 13.6 Plt Count 117 L MPV 10.5 Neutrophils % 54.3 Lymphocytes % 36.2 D Monocytes % 7.7 Eosinophils % 1.4 Basophils % 0.4 Sodium 140 Potassium 4.2 Chloride 105 Carbon Dioxide 27 Anion Gap 8 BUN 12 Creatinine 0.6 L POC Glucometer 262 Random Glucose 181 H Calcium 8.6 IMAGING 01/03/17: Head CT w/o contrast: acute /subacute frontoparietal subcortical infarcts 01/03/17: Cervical spine CT: moderate C6-C7 central canal stenosis, moderate R C6 -C7 foraminal stenosis, 01/03/17: Carotid Doppler study: negative 01/03/17: EKG: septal infarct, no significant change when compared to previous EKG done in ED 01/04/17: CXR: no acute pathology 01/04/17: ECHO: within normal limits HOSPITAL COURSE: Date of Admission:01/03/17 Date of Discharge: 01/05/17 Admit diagnosis: CVA Pre-admission course 61 y/o M with PMH HTN, HLD, IDDM bettencourt who presents to ED with R upper extremity weakness over the past 3 days. As per patient, one week ago, he had sudden sub-sternal chest pressure that was constant. Pt went to his PCP and had an EKG performed, which was normal. Four days later, pt suddenly experienced R lower extremity weakness, followed by R arm weakness and tingling, which is constant. This has been going on for the past 3 days, and it is not related to any injury or fall. During this time, pt has also had blurry vision which is more pronounced in his L eye. Over the past week, he has also had constant, 6/10 back pain that is relieved by leaning forward. He has also lost 25 pounds over the last 3 months and has decreased appetite. Denies fevers, night sweats, N/V/D, bladder or bowel incontinence, recent falls , injuries. ER course was notable for: (1) CT w/o contrast: acute/subacute L frontoparietal subcortical infarcts (2) CT cervical spine: C6-C7 central canal stenosis, R C6-C7 foraminal stenosis Hospital course While on the floor, full stroke workup was performed on patient. Head CT revealed acute /subacute frontoparietal subcortical infarcts, while Carotid doppler, CXR and ECHO were WNL. Pt's lipid profile revealed triglycerides of 486. Pt was managed on aspirin 81mg, Crestor 10mg, Plavix 75mg, Prinivil 2.5mg, and Trilipix 45mg (he will continue these meds upon discharge). He was also recommended a Brain MRI/MRA without contrast, but opted out. Pt was seen by Speech & swallow and was not found to have any deficits that would affect his nutrition. During this time, pt's BP was controlled with his home medications of Prinivil 2.5mg and Aspirin 81mg, and he was educated on checking his blood sugar upon discharge, since his A1c in the hospital was 8.8%. Minutes to complete discharge: 32 Discharge Summary Reason For Visit: CVA Current Active Problems CVA (cerebral vascular accident) (Acute) Condition: Stable - Instructions Diet, Activity, Other Instructions: You were recently in the hospital for a stroke. We found this on a scan of your brain. You may resume activity. Please take the following medications when you leave the hospital, starting tomorrow: -Aspirin 81mg (1 tablet) once a day (your home medication) -Crestor 10mg (1 tablet) once a day -Plavix 75 mg (1 tablet) once a day -Trilipix 45 mg (1 tablet) once a day -Lisinopril (Zestril) 2.5mg once a day (your home medication) -continue daily insulin 15 units along with insulin sliding scale below. Measure your blood sugar before meals and take the appropriate number of insulin sliding scale units based on the sugar reading: for blood sugars: 100-150 ; do not take any additional units 151-200 ; take 2 Units of insulin sliding scale 201-250 ; take 4 Units of insulin sliding scale 251-300 ; take 6 Units of insulin sliding scale 301-350 ; take 8 Units of insulin sliding scale 351-400 ; take 10 Units and call your primary care doctor Please follow-up with: - your primary care doctor (for further evaluation of weight loss you mentioned you had- 25 pound weight loss over 3 months, and your diabetes management) -a neurologist, Dr. Le - and a eyeglass frame truer, Dr. Tamayo (for further evaluation, possible stress testing ) in one week. If you develop any new numbness in your arms or legs, or develop chest pain or have trouble breathing, please go to the hospital. We hope you feel better soon. Referrals: Ramone Le MD [Staff Physician] - Donis Tamayo MD [Staff Physician] - Ana Laura Valentin MD [Primary Care Provider] - Disposition: HOME - Home Medications Comprehensive Discharge Medication List: Ambulatory Orders Aspirin [ASA -] 81 mg PO DAILY 01/03/17 Insulin (Novolog 70/30) [Novolog Mix 70/30 Flexpen -] 15 units SQ DAILY Lisinopril [Zestril] 2.5 mg PO DAILY 01/03/17 Simvastatin 5 mg PO 1900 01/03/17 Clopidogrel Bisulfate [Plavix -] 75 mg PO DAILY #30 tablet 01/05/17 Fenofibric Acid [Trilipix -] 45 mg PO DAILY #30 cap 01/05/17 Insulin Sliding Scale [Novolog Vial Sliding Scale -] 1 vial SQ ACHS #1 vial 06/23 This patient is new to me today: No Emergency Visit: No Critical Care patient: No - Discharge Referral Referred to [facility] No
--- NOTE | 2017-01-05 18:25 | PN ---
Teaching Attending Note Name of Resident: Corry Hicks ATTENDING PHYSICIAN STATEMENT I saw and evaluated the patient. I reviewed the resident's note and discussed the case with the resident. I agree with the resident's findings and plan as documented. SUBJECTIVE: OBJECTIVE: Vital Signs Period Temp Pulse Resp BP Sys/Sanchez Pulse Ox Last 24 Hr 97 F-98.2 F 59-68 18-20 102-122/60-69 96-96 ASSESSMENT AND PLAN: 61yo M with PMH HTN, dyslipidemia and DM presented to the ER with RUE/RLE weakness and found to have subacute CVA 1. L subacute CVA- NIHSS 4. clinically improved. strength is now improved. carotid doppler negative for significant disease. cont further CVA workup. MRI/ MRI, echo. Neuro, speech and swallow pathologist, PT eval. on statin/plavix. 2. C6-C7 canal stenosis- strength now equal in all 4 extremities but continues to have numbness limited to entire RUE. concern may be related to this over CVA. would likely benefit from EMG to further evaluate. PT assessment 3. Significant weight loss- should have a malignancy workup done as outpatient. pt agreeable to workup as outpatient. expressed concerning for malignancy. pt is anxious to go home and does not want to delay discharge. + smoking history 4. hypertriglyceridemia- start fibrate 5. HTN- controlled. cont home medications. 6. DM- A1c 8.8. titrate to optimize control. on novolog 70/30 7. DVT ppx- EAM
--- NOTE | 2017-01-07 10:52 | EKG ---
Test Reason : Blood Pressure : / mmHG Vent. Rate : 067 BPM Atrial Rate : 067 BPM P-R Int : 150 ms QRS Dur : 078 ms QT Int : 358 ms P-R-T Axes : 053 021 029 degrees QTc Int : 378 ms NORMAL SINUS RHYTHM SEPTAL INFARCT , AGE UNDETERMINED ABNORMAL ECG NO PREVIOUS ECGS AVAILABLE Confirmed by CRISTOFER DYSON, THERESE ([id number]) on 01/07/2017 10:51:27 AM Referred By: Confirmed By:THERESE CLEVELAND MD
--- NOTE | 2017-01-09 09:03 | PDOC ---
NIH Stroke Scale - Last Known Well Date/Time & Onset Date Last Known Well: 01/01/17 (time unknown) - Initial Evaluation Level of consciousness: Alert Ask patient the month and their age: Answers both correctly Ask patient to open & close eyes; make fist and let go: Obeys both correctly Best gaze (horizontal eye movement): Normal Visual field testing: No visual field loss Facial paresis (Show teeth/raise eyebrows/close eyes tight): Normal symmetrical movement Motor Function: Left Arm: Normal Motor Function: Right Arm: Normal (extends arm 90 (or 45) degrees for 10 seconds without drift Motor Function: Left Leg: Normal (extends leg 30 degrees for 5 seconds without drift) Motor Function: Right Leg: Normal (extends leg 30 degrees for 5 seconds without drift) Limb Ataxia: No ataxia Sensory(Use pinprick test arms,legs,trunk,face/side to side): Mild to moderate decrease in sensation (to RUE compared to left) Best language (Describe picture, name items, read sentences): No Aphasia Dysarthria (read several words): Normal articulation Extinction and Inattention: No abnormality - Total Score NIH Stroke Scale Score: 1 tPA Exclusion Checklist 0-3hr - Time Elapsed Date last known well: 01/01/17 (time unknown) Time last known well: 12:00 (this portion of the chart documented 7 days after I saw pt (01/03/17)) Elaspsed time: 7 Day(s) and 21 Hour(s) and 14 Minutes - Thrombolytic Therapy Candidate Is the patient eligible for Thrombolytic Therapy?: No - Ineligibility reason(s) Reasons No tPA given: Outside of window - delayed arrival (pt's last known well was 3 days prior to presentation)
== END 2017-01-05 15:19 | disposition home or self-care (01) | DRG 45 ==
LOC: JER 11:51 → JERBED 14:41 → J4W 19:15
PROVIDERS: ADMIT Internal Medicine; ATTEND Internal Medicine
DX: I63.9 Cerebral infarction, unspecified (principal); I10 Essential (primary) hypertension; E78.5 Hyperlipidemia, unspecified; E11.65 Type 2 diabetes mellitus with hyperglycemia; Z79.4 Long term (current) use of insulin; E78.1 Pure hyperglyceridemia; R63.4 Abnormal weight loss; Z68.21 Body mass index [BMI] 21.0-21.9, adult; M48.02 Spinal stenosis, cervical region; R07.89 Other chest pain; G81.91 Hemiplegia, unspecified affecting right dominant side; R29.704 NIHSS score 4
CPT/HCPCS: 36415; 70450-TC; 71010-TC; 72125-TC; 80048; 80053; 80061; 81003; 83036; 83721; 84443; 84484; 85025; 85610; 85651; 85730; 86140; 90670; 93005; 93010; 93306-TC; 93880-TC; 97116-GP; 97161-GP; 99283-25